=== PATIENT | female | born 1980 | race Two or more races ===

== ENCOUNTER 2019-11-10 20:11 | Emergency (ER) | payer MEDICAID, OTHER ==
[~2019-11-10] VITALS: Ht 172.7 cm; Wt 74.4 kg
[2019-11-10 20:53] LABS: Urine Bacteria NONE SEEN /hpf (None Seen); Urine Blood TRACE /uL (Negative); Urine Mucus FEW (None Seen); Urine Specific Gravity 1.031 (1.001-1.035); Urine WBC 1 /hpf (0 - 5)
[2019-11-10 22:25] LABS: Basophils # (auto) 0.1 10 ^3/uL (0-0.2); Basophils % (auto) 0.4 % (0.0-2.0); Eosinophils # (auto) 0 10 ^3/uL (0-0.8); Eosinophils % (auto) 0.2 % (0.0-7.0); Hematocrit 41.1 % (36.0-46.0); Hemoglobin 13.6 g/dL (12.2-16.2); Lymphocytes # (auto) 1.3 10 ^3/uL (0.4-5.4); Lymphocytes % (auto) 9.7 % (10.0-50.0); Mean Corpuscular Hemoglobin 29.1 pg (28.0-32.0); Mean Corpuscular Hgb Conc. 33.1 g/dL (32.0-36.0); Mean Corpuscular Volume 87.9 fL (80.0-100.0); Monocytes # (auto) 0.6 10 ^3/uL (0-1.3); Monocytes % (auto) 4.2 % (0.0-12.0); Neutrophils # (auto) 11.3 10 ^3/uL (1.6-8.6); Neutrophils % (auto) 85.5 % (37.0-80.0); Platelet Count (auto) 353 10^3/uL (140-450); Red Blood Cells 4.67 10^6/uL (4.0-5.20); Red Cell Distribution Width 13.1 % (11.8-14.3); White Blood Cell 13.2 10^3/uL (4.4-10.8)
[2019-11-10 22:42] LABS: Calcium 9.1 mg/dL (8.5-10.1); Magnesium 2.3 mg/dL (1.6-2.6); Potassium 3.9 mmol/L (3.5-5.1)
[2019-11-10 22:46] LABS: BUN/Creatinine Ratio 24.2; Bilirubin, Total 0.3 mg/dL (0.2-1.0); Total Protein 7.8 g/dL (6.4-8.2)
[2019-11-11 01:00] VITALS: BP 109/67
== END 2019-11-11 02:05 | disposition home or self-care (01) ==
LOC: ER 20:11
DX: K65.4 Sclerosing mesenteritis (principal)
CPT/HCPCS: 36415; 74176; 80053; 81001; 81025; 82150; 83690; 83735; 85025; 93005

== ENCOUNTER 2019-11-29 13:11 | Emergency (ER) | payer MEDICAID ==
[~2019-11-29] VITALS: Ht 172.7 cm; Wt 74.8 kg
[2019-11-29] MEDS ORDERED: SODIUM CHLORIDE 0.9% 1,000 ML IV ONE (14:16)
[2019-11-29 15:32] LABS: Basophils # (auto) 0 10 ^3/uL (0-0.2); Basophils % (auto) 0.2 % (0.0-2.0); Eosinophils # (auto) 0.1 10 ^3/uL (0-0.8); Eosinophils % (auto) 0.8 % (0.0-7.0); Hematocrit 40.9 % (36.0-46.0); Hemoglobin 13.8 g/dL (12.2-16.2); Lymphocytes # (auto) 1.7 10 ^3/uL (0.4-5.4); Mean Corpuscular Hgb Conc. 33.8 g/dL (32.0-36.0); Mean Corpuscular Volume 85.9 fL (80.0-100.0); Monocytes # (auto) 0.4 10 ^3/uL (0-1.3); Monocytes % (auto) 5.8 % (0.0-12.0); Neutrophils % (auto) 69.2 % (37.0-80.0); Platelet Count (auto) 320 10^3/uL (140-450); Red Blood Cells 4.76 10^6/uL (4.0-5.20); Red Cell Distribution Width 12.9 % (11.8-14.3); White Blood Cell 7.2 10^3/uL (4.4-10.8)
[2019-11-29 15:48] LABS: Albumin 3.7 g/dL (3.4-5.0); Magnesium 2.4 mg/dL (1.6-2.6); Potassium 3.9 mmol/L (3.5-5.1)
[2019-11-29 15:52] LABS: BUN/Creatinine Ratio 21.4; Bilirubin, Total 0.4 mg/dL (0.2-1.0); Total Protein 7.9 g/dL (6.4-8.2)
[2019-11-29 21:19] VITALS: BP 136/84
== END 2019-11-29 18:54 | disposition home or self-care (01) ==
LOC: ER 13:11
DX: U07.1 COVID-19 (principal); F12.10 Cannabis abuse, uncomplicated; Z98.51 Tubal ligation status
CPT/HCPCS: 36415; 71045; 80053; 83735; 84702; 85025; 87070; 87804; 87880; 99284; U0003